=== PATIENT | male | born 1950 | race African-American/Black ===

== ENCOUNTER 2019-02-24 18:18 | Inpatient (IN) | payer MEDICARE, MEDICAID ==
[~2019-02-24] VITALS: Ht 172.7 cm; Wt 85.7 kg
[~2019-02-24 18:18] MED LIST: ABILIFY; CIPRO; FINASTERIDE; FLOMAX; GEODON; HYDROCHLOROTHIAZIDE; HYDROCODONE; NAPROXEN; NORVASC; TOLTERODINE
[2019-02-24] MEDS ORDERED: MORPHINE SULFATE 4 MG/ML CPJ (NOT FOR IM USE) IV STA (23:52)
[2019-02-24] MEDS ORDERED: ONDANSETRON HCL 4MG/2ML INJ IV STA (23:52)
[2019-02-25] MEDS ORDERED: NITROGLYCERIN OINT 1GM/INCH UDPKT TD ONE
[2019-02-25] MEDS ORDERED: ASPIRIN 81MG TABLET PO ONE
[2019-02-25 00:34] LABS: BASOPHILS % 0.3 % (0.0-2.0); EOSINOPHILS % 2.5 % (0.0-5.0); HEMATOCRIT. 42.3 % (42.0-52.0); HEMOGLOBIN. 14.5 g/dL (14.0-18.0); LYMPHOCYTES % 43.2 % (20.0-50.0); MEAN CORPUSCULAR HEMOGLOBIN 36.4 pg (28.0-32.0); MEAN CORPUSCULAR VOLUME 106.5 fL (80.0-94.0); MEAN PLATELET VOLUME 6.3 fl (7.4-10.4); MONOCYTES % 13.5 % (2.0-8.0); NEUTROPHILS % 40.5 % (40.0-76.0); PLATELET 166 x1000/uL (130-400); RED BLOOD CELL COUNT 3.97 mill/uL (4.7-6.1); RED CELL DISTRIBUTION WIDTH 15.7 % (11.6-14.6)
[2019-02-25 00:36] LABS: CHLORIDE 107 mEq/L (98-107)
[2019-02-25 08:00] VITALS: BP 125/83
[2019-02-25] MEDS ORDERED: OXYC-105 MT (08:48)
[2019-02-25] MEDS ORDERED: HYDR-4133 PO (08:48)
[2019-02-25 11:13] VITALS: BP 125/83
[2019-02-25 12:00] VITALS: BP 127/91
[2019-02-25] MEDS: OXYCODONE HCL/ACETAMINOPHEN 5/325MG TABLET PO PRN (12:43)
[2019-02-25] MEDS ORDERED: DIPHENHYDRAMINE 50MG/ML VIAL IV PRN (12:45)
[2019-02-25] MEDS ORDERED: IPRATROPIUM/ALBUTEROL 0.5-3(2.5)MG/3ML NEB HHN PRN (12:45)
[2019-02-25] MEDS ORDERED: HYDRALAZINE 20MG/ML VIAL IV PRN (12:45)
[2019-02-25] MEDS ORDERED: DOCUSATE SODIUM 100MG CAPSULE PO PRN (12:45)
[2019-02-25 13:11] LABS: BG BASE EXCESS -0.6 mmol/L (-2.0-2.0); BG DEOXYHEMOGLOBIN 2.1 % (0.0-5.0); BG HCO3 ACT 22.9 mmol/L (22.0-26.0); BG METHEMOGLOBIN 0.1 % (0.0-1.5); BG OXYGEN SATURATION 97.9 % (92.0-98.5); BG OXYHEMOGLOBIN 96.8 % (94.0-97.0); BG PCO2 34.5 mmHg (35.0-45.0); BG PO2 100.3 mmHg (75.0-100.0); BG SAMPLE SITE RIGHT RADIAL; BG VENT MODE ROOM AIR
[2019-02-25] MEDS: ENOXAPARIN 40MG/0.4ML SYR SUBCUT SCH (14:18)
[2019-02-25 14:31] LABS: HEMATOCRIT. 41.1 % (42.0-52.0); HEMOGLOBIN. 14.1 g/dL (14.0-18.0); MEAN CORPUSCULAR HEMOGLOBIN 36.2 pg (28.0-32.0); MEAN CORPUSCULAR VOLUME 105.9 fL (80.0-94.0); MEAN PLATELET VOLUME 6.4 fl (7.4-10.4); PLATELET 156 x1000/uL (130-400); RED BLOOD CELL COUNT 3.88 mill/uL (4.7-6.1); RED CELL DISTRIBUTION WIDTH 15.9 % (11.6-14.6)
[2019-02-25 14:32] LABS: CHLORIDE 111 mEq/L (98-107)
[2019-02-25 14:33] LABS: PROTHROMBIN TIME 10.2 sec (9.6-11.0)
[2019-02-25 14:40] LABS: CREATINE KINASE 203 IU/L (39-308)
[2019-02-25 14:41] LABS: CREATINE KINASE MB FRACTION 2.7 ng/mL (0.5-3.6)
[2019-02-25] MEDS: MORPHINE SULFATE 2 MG/ML CPJ (NOT FOR IM USE) IV PRN ×2 (15:28→22:00)
[2019-02-25 16:00] VITALS: BP 129/87
[2019-02-25 16:55] LABS: PLATELET ESTIMATE NORMAL
[2019-02-25 18:00] VITALS: BP 129/87
[2019-02-25 20:00] VITALS: BP 135/95
[2019-02-25 21:02] LABS: PROSTRATE SPECIFIC AG TOTAL 2.17 ng/mL (0.0-4.0)
[2019-02-25 21:13] LABS: HEPATITIS B SURFACE ANTIGEN NEGATIVE
[2019-02-25 21:43] LABS: HEPATITIS A AB IGM NEGATIVE (NEGATIVE)
[2019-02-26] VITALS: BP 114/63
[2019-02-26 04:00] VITALS: BP 125/74
[2019-02-26 07:46] VITALS: BP 140/92
[2019-02-26] MEDS: MORPHINE SULFATE 2 MG/ML CPJ (NOT FOR IM USE) IV PRN (08:05)
[2019-02-26] MEDS ORDERED: ASPIRIN 81MG TABLET PO SCH (09:00)
[2019-02-26 09:35] LABS: CREATINE KINASE 137 IU/L (39-308)
[2019-02-26 09:36] LABS: CREATINE KINASE MB FRACTION 1.5 ng/mL (0.5-3.6)
[2019-02-26 12:50] VITALS: BP 138/83
[2019-02-26] MEDS: ENOXAPARIN 40MG/0.4ML SYR SUBCUT SCH (13:27)
[2019-02-26] MEDS: OXYCODONE HCL/ACETAMINOPHEN 5/325MG TABLET PO PRN (13:38)
[2019-02-26 15:45] VITALS: BP 132/88
[2019-02-26 15:46] VITALS: BP 132/88
== END 2019-02-26 16:50 | disposition home or self-care (01) | DRG 292 ==
LOC: ER 18:18 → 8WST 02-25 04:38 → EDBEDREQDT 02-25 04:45 → EDBEDREQTM 02-25 04:45 → EDBEDREQ 02-25 04:46 → ENRESERV 02-25 07:39
PROVIDERS: ADMIT Internal Medicine; ATTEND Internal Medicine
DX: I11.0 Hypertensive heart disease with heart failure (principal); F11.20 Opioid dependence, uncomplicated; I50.33 Acute on chronic diastolic (congestive) heart failure; F10.10 Alcohol abuse, uncomplicated; F17.210 Nicotine dependence, cigarettes, uncomplicated; F25.9 Schizoaffective disorder, unspecified; G43.909 Migraine, unspecified, not intractable, without status migrainosus; K21.9 Gastro-esophageal reflux disease without esophagitis; G89.29 Other chronic pain; N40.0 Benign prostatic hyperplasia without lower urinary tract symptoms; R74.0 Nonspecific elevation of levels of transaminase and lactic acid dehydrogenase [LDH]; M54.9 Dorsalgia, unspecified; Z91.19 Patient's noncompliance with other medical treatment and regimen; Z88.8 Allergy status to other drugs, medicaments and biological substances; Z79.899 Other long term (current) drug therapy; Z71.6 Tobacco abuse counseling; Z71.41 Alcohol abuse counseling and surveillance of alcoholic
CPT/HCPCS: 36415; 36600; 71045; 80048; 80061; 82375; 82550; 82553; 82805; 83036; 83880; 84153; 84484; 85379; 86705; 86709; 86803; 87340; 93005; 93306; 93970; 99285; J1650; J2270; J2405; G0103